=== PATIENT | female | born 2000 | race Caucasian/White ===

== ENCOUNTER 2021-04-13 15:03 | Outpatient (REF) | payer MEDICAID, SELFPAY ==
[2021-04-15 00:50] LABS: COVID-19 RT-PCR UVMMC Result Negative (Negative)
== END 2021-04-13 15:04 | disposition home or self-care (01) ==
LOC: LBN 15:03
PROVIDERS: PCP Family Medicine; Visit Provider Physician Assistant Medical
DX: Z20.822 Contact with and (suspected) exposure to COVID-19 (principal); R05 Cough
CPT/HCPCS: U0003

== ENCOUNTER 2021-06-15 12:41 | Outpatient (REF) | payer BC, MEDICAID, SELFPAY ==
--- NOTE | 2021-06-15 11:30 | PAPFT_PTH ---
PATIENT: Loni Arredondo LOC: [facility]#:[id number] AGE/SX: 20/ ROOM: RE06/15/[address]: Ashleigh Underwood : 2000 BED: DIS: 06/15/2021 SPEC #: [id number] RECD: 06/16/21 12:35 STATUS: YOHANNES RECollin #: [id number] LISA: 06/15/21 11:[address]: Ashleigh Underwood DEPT: [facility] Cytology RECD BY: Norma Godinez ENTERED: 06/16/21 12:35 SP TYPE: PAPFT OTHR DR: Nadja Aguilar Tissues: 1 - CX/ENDOCX FOR PAP SMEARS Procedures: PAP THIN PREP/[facility] Screening Comments: [id number] (CHLAMYDIA/GC)
[2021-06-17 09:51] LABS: Hepatitis C Ab w Rflx HCV PCR Negative (Negative)
[2021-06-17 10:12] LABS: HIV-1/2 Ag & Ab Screen Negative (Negative)
[2021-06-17 15:21] LABS: Chlamydia Result Negative (Negative); GC Result Negative (Negative)
== END 2021-06-15 12:42 | disposition home or self-care (01) ==
LOC: NCHCN 12:41
PROVIDERS: PCP Family Medicine; Visit Provider Nurse Practitioner Family
DX: N89.8 Other specified noninflammatory disorders of vagina (principal); Z11.4 Encounter for screening for human immunodeficiency virus [HIV]; Z11.3 Encounter for screening for infections with a predominantly sexual mode of transmission; Z12.4 Encounter for screening for malignant neoplasm of cervix; Z11.59 Encounter for screening for other viral diseases
CPT/HCPCS: 86803; 87389; 87491; 87591; 88142; 87480; 87510; 87660

== ENCOUNTER 2021-06-30 01:31 | Outpatient (CLI) | payer MEDICAID, SELFPAY ==
--- NOTE | 2021-06-30 08:00 | DI.US_ITS ---
Exam(s) US BREAST LT COMPLETE US BREAST RT COMPLETE EXAM: US BREAST BILATERAL COMPLETE CLINICAL HISTORY: BILAT BREAST PAIN N64.4. TECHNIQUE: Complete ultrasound of BOTH breasts was performed including all 4 quadrants, the retroare olar regions, and the axillae. COMPARISON: None. This 20-year-old patient is complaining of mostly premenstrual generalized bilate ral breast pain. She does not feel a lump in either breast and she denies nipple discharge FINDINGS: LEFT BREAST: There are 2 adjacent findings at 1 o'clock position. One of these is a benign-appearing 8 x 3 millim eter lymph node. The other is a partially septated benign microcysts. At the 10 o'clock position th ere is a tiny benign microcysts measuring 3 millimeters. No solid lesions in all 4 quadrants nor in the retroareolar region. Benign-appearing lymph nodes in the ipsilateral left axilla. RIGHT BREAST: There is a solitary finding which is at the 11 o'clock position and has appearance of a benign septat ed microcyst measuring 5 x 3 millimeters. No solid lesions. Benign-appearing lymph nodes in the ips ilateral right axilla. IMPRESSION: Bilateral benign findings as described above. No solid nodules in either breast. No significant axi llary adenopathy Appropriate follow-up is repeat ultrasound in 6 months, with the follow-up ultrasound be performed wh en she is most tender, which she claims is premenstrually. Earlier imaging would be performed if cli nically indicated.. BI-RADS Category 3 - 6 month - Probably Benign Finding: Recommend follow-up mammography in 6 months Breast Density - Category C - Heterogeneously dense Breast density Category C or D implies that the patient has dense breast tissue. Dense breast tissue can make it harder to find cancer on a mammogram. Dense breast tissue is also associated with an incr eased risk of breast cancer. This information about the result of the mammogram report was provided to the patient to raise their awareness. Use this report when you speak with the patient about their risks for breast cancer, which includes their family history. At that time, you may recommend additional screening tests (Ultrasoun d or MRI) as these tests may add significant information. A negative radiographic report should not delay biopsy if a dominant or clinically suspicious mass is present. Up to ten percent of cancers are not identified on mammography. A negative report may reinforce clinical impression. Adenosis and dense breasts may obscure an underlying neoplasm. False positive reports average 6 to 10%. Patient will receive a letter notifying them of these results.
== END 2021-06-30 01:51 ==
PROVIDERS: PCP Family Medicine; Visit Provider Nurse Practitioner Family
DX: N64.4 Mastodynia (principal)
CPT/HCPCS: 76642

== ENCOUNTER → 2021-12-30 00:40 | Outpatient (CLI) | payer MEDICAID, SELFPAY | PROVIDERS: PCP Family Medicine; Visit Provider Nurse Practitioner Family ==

== ENCOUNTER 2022-06-09 14:06 | Outpatient (REF) | payer MEDICAID, SELFPAY ==
[2022-06-09 21:39] LABS: Abs Immature Grans 0.02 10^3/uL (0.0-0.06); Absolute Basophil Count 0.09 10^3/uL (0.0-0.2); Absolute Lymphocyte Count 2.72 10^3/uL (1.2-3.4); Absolute Monocyte Count 0.59 10^3/uL (0.1-0.8); Absolute Neutrophil Count 3.64 10^3/uL (1.2-6.7); Basophils % 1.2; Eosinophils % 7.8; HCT 38.8 % (36.0-46.0); HGB 12.6 g/dL (11.2-15.7); Immature Grans % 0.3; Lymphocytes % 35.5; MCH 29.7 pg (27.0-33.0); MCHC 32.5 % (32.0-36.0); MCV 92 fL (80-95); MPV 10.9 fL (8.0-11.0); Monocytes % 7.7; Neutrophils % 47.5; Platelet Count 323 10^3/uL (130-400); RBC 4.24 10^6/uL (3.93-5.22); RDW 12.9 % (11.7-14.6); WBC 7.66 10^3/uL (4.4-10.8)
[2022-06-09 22:04] LABS: Iron 81 ug/dL (50-170); Total Iron Binding Capacity 350 ug/dL (250-450); Transferrin Sat 23 % (15-50)
[2022-06-09 22:19] LABS: ALT 20 U/L (14-59); AST 13 U/L (15-37); Albumin 4.1 g/dL (3.4-5.0); Alkaline Phosphatase 57 U/L (46-116); BUN 13 mg/dL (7-18); Bilirubin, Total 0.6 mg/dL (0.2-1.0); CREATININE 0.8 mg/dL (0.55-1.02); Calcium 9.3 mg/dL (8.5-10.1); Chloride 105 mmol/L (98-107); Estimated GFR 106.77 (mL/min/1.73m2); Ferritin 23 ng/mL (8-252); Glucose 63 mg/dL (74-106); Magnesium 1.9 mg/dL (1.8-2.4); Potassium 3.7 mmol/L (3.5-5.1); Sodium 139 mmol/L (136-145); Total Protein 7.2 g/dL (6.4-8.2); Vitamin B12 470 pg/mL (193-986)
== END 2022-06-09 14:07 | disposition home or self-care (01) ==
LOC: NCHCN 14:06
PROVIDERS: PCP Family Medicine; Visit Provider Nurse Practitioner Family
DX: R63.4 Abnormal weight loss (principal); R41.840 Attention and concentration deficit; R41.3 Other amnesia; R79.89 Other specified abnormal findings of blood chemistry
CPT/HCPCS: 80053; 82607; 82728; 83540; 83550; 83735; 84443; 85025